=== PATIENT | female | born 1985 | race Caucasian/White ===

== ENCOUNTER 2019-03-05 15:02 | Inpatient (IN) | payer OTHER ==
[~2019-03-05] VITALS: Ht 172.7 cm; Wt 72.2 kg
[2019-03-05] MEDS ORDERED: ACETAMINOPHEN 500 MG TAB PO STA (19:01)
--- NOTE | 2019-03-05 19:21 | ERD ---
ER Documentation Chief Complaint Chief Complaint pelvic pain, fever X 3 hrs HPI This is a 33-year-old female with a history of fibroids who presents ED with right lower abdominal pain that is been present since 1 AM this morning. Fletcher pderaza describes the pain is pressure-like and sharp and states that it is constant. Worsened by movement. Last menstrual period 03-05-19. Patient is currently on menses. Admits to nauseA and fevers. Denies vomiting, hematemesis, hemoptysis, diarrhea, cuts patient, melena, hematochezia, chest pain, shortness breath, dysuria, hematuria, vaginal pain, vaginal discharge and all other symptoms. Patient is sexually active and uses condoms for control. Denies history of STD or pelvic inflammatory disease. ROS All systems reviewed and are negative except as per history of present illness. Allergies Allergies: Coded Allergies: No Known Allergy (Unverified , 03/05/19) PMhx/Soc Medical and Surgical Hx: pt denies Medical Hx, pt denies Surgical Hx Hx Alcohol Use: No Hx Substance Use: No Hx Tobacco Use: No Smoking Status: Never smoker FmHx Family History: No diabetes Physical Exam Vitals Vital Signs Date Temp Pulse Resp B/P (MAP) Pulse Ox O2 O2 Flow FiO2 Time Delivery Rate 03/05/19 98.7 84 18 141/73 100 15:07 (95) Physical Exam Physical Exam Vitals signs: Reviewed by me. General: Well developed, well nourished, in no acute distress. Patient is awake and alert. Head: Normocephalic, atraumatic. Eyes: Normal conjunctiva, Pupils PERRLA, EOM intact grossly ENT: Pharynx is clear, Moist mucous membranes, external ears, nose and mouth normal Neck: Supple, no masses, lymphadenopathy or JVD Respiratory: Clear to auscultation bilaterally with no wheezing, rhonchi, rales, no distress Cardiovascular: RRR, no murmurs, rubs, or gallops Abdominal: Soft, nondistended, no peritoneal signs, no rigidity, no surgical abdomen, bowel sounds present all 4 quadrants, mild tenderness palpation in right lower quadrant right lower pelvis, nontender palpation all other areas, no rebound tenderness Back: No midline tenderness. No flank tenderness Neurologic: Alert and oriented, moving all extremities, normal speech, no focal weakness, no cerebellar signs. Normal mentation Skin: warm and dry, No rash Psych: Normal mood Result Diagram: 03/05/19192703/05/191927 Results 24 hrs Laboratory Tests Test 03/05/19 19:28 03/05/19 19:40 White Blood Count 20.0 10^3/ul Red Blood Count 4.56 10^6/ul Hemoglobin 12.4 g/dl Hematocrit 36.0 % Mean Corpuscular Volume 78.9 fl Mean Corpuscular Hemoglobin 27.2 pg Mean Corpuscular Hemoglobin Concent 34.4 g/dl Red Cell Distribution Width 13.8 % Platelet Count 273 10^3/UL Mean Platelet Volume 11.7 fl Immature Granulocytes % 0.500 % Neutrophils % 79.6 % Lymphocytes % 13.7 % Monocytes % 5.5 % Eosinophils % 0.4 % Basophils % 0.3 % Nucleated Red Blood Cells % 0.0 /100WBC Immature Granulocytes # 0.090 10^3/ul Neutrophils # 16.0 10^3/ul Lymphocytes # 2.7 10^3/ul Monocytes # 1.1 10^3/ul Eosinophils # 0.1 10^3/ul Basophils # 0.1 10^3/ul Nucleated Red Blood Cells # 0.0 10^3/ul Urine Color STRAW Urine Clarity CLEAR Urine pH 5.0 Urine Specific [place] 1.011 Urine Ketones NEGATIVE mg/dL Urine Nitrite NEGATIVE mg/dL Urine Bilirubin NEGATIVE mg/dL Urine Urobilinogen NEGATIVE mg/dL Urine Leukocyte Esterase NEGATIVE Miguel A/ul Urine Microscopic RBC 0 /HPF Urine Microscopic WBC 6 /HPF Urine Hemoglobin 3+ mg/dL Urine Glucose NEGATIVE mg/dL Urine Total Protein NEGATIVE mg/dl Sodium Level 139 mmol/L Potassium Level 4.2 mmol/L Chloride Level 102 mmol/L Carbon Dioxide Level 26 mmol/L Anion Gap 11 Blood Urea Nitrogen 14 mg/dl Creatinine 0.74 mg/dl Est Glomerular Filtrat Rate mL/min > 60 mL/min Glucose Level 99 mg/dl Calcium Level 9.8 mg/dl Total Bilirubin 0.2 mg/dl Direct Bilirubin 0.00 mg/dl Indirect Bilirubin 0.2 mg/dl Aspartate Amino Transf (AST/SGOT) 17 IU/L Alanine Aminotransferase (ALT/SGPT) 11 IU/L Alkaline Phosphatase 59 IU/L Total Protein 8.1 g/dl Albumin 4.5 g/dl Globulin 3.60 g/dl Albumin/Globulin Ratio 1.25 Lipase 124 U/L POC Beta HCG, Qualitative NEGATIVE Current Medications Medications Dose Sig/Ariadne Start Time Status Last (Trade) Ordered Route PRN Stop Time Admin Dose Reason Admin 1,000 mg ONCE STAT 03/05/19 DC 03/05/19 Acetaminophen PO 19:01 03/05/19 19:20 (Tylenol 19:04 Tab) IV Flush 10 ml STK-MED 03/05/19 DC (NS 10 ml) ONCE .ROUTE 21:39 03/05/19 21:40 Sodium 100 ml @ ud STK-MED 03/05/19 DC Chloride ONCE .ROUTE 21:39 03/05/19 21:40 Iohexol 150 ml STK-MED 03/05/19 DC (Omnipaque ONCE .ROUTE 21:39 03/05/19 300mg/ ml) 21:40 Piperacillin 100 ml @ ONCE ONCE 03/05/19 Sod/ 200 mls/hr IVPB 23:30 03/05/19 Tazobactam 23:59 Sod Sodium 1,000 ml @ Q1H STAT 03/05/19 Chloride 1,000 mls/hr IV 23:07 03/06/19 00:06 Procedures/MDM EKG, MONITORS, & DIAGNOSTIC IMAGING: [place] [address] Radiology Main Line: [phone] DIAGNOSTIC IMAGING REPORT Patient: JOSE BALLARD : 1985 Age: 33 Sex: F MR #: [id number] DOS: 03/05/19 1901 Ordering MD: KIMBERLEE GOLD PA-C Location: [facility] Room/Bed: PROCEDURE: CT abdomen and pelvis without contrast. CLINICAL INDICATION: Abdominal Pain TECHNIQUE: CT scan of the abdomen and pelvis without contrast was performed and is reconstructed at 2.5 mm contiguous axial intervals from the dome of the diaphragm to the inferior pubic rami.. The patient was scanned without intravenous contrast. Sagittal and coronal reformatted images were obtained from the axial source images. The calculated radiation dose measures 355 mGy centimeters. The CTDI measures 6.1 mGy. Individualized dose optimization technique was used for the performance of this exam. This included 1. Automated exposure control. 2. Adjustment of the mA and / or kV according to the patient's size. 3. Use of iterative reconstructed technique. COMPARISON: None. FINDINGS: The lung bases are clear of any infiltrate or nodule. No effusion is seen. The liver is of normal size, contour and attenuation with no mass or ductal dilatation. No gallstones are visualized. No splenic, adrenal or pancreatic abnormalities present. Kidneys are of normal size and contour. No hydronephrosis, calculus or masses seen. Ureters are of normal course and caliber with no stone. No bladder mass or stone is present. There are matted loops of bowel in the pelvis with infiltration of the mesenteric fat. Noted is a complex septated fluid collection in the right cul-de-sac measuring approximately 7 by 6 cm. This corresponds to the abnormality found on the recent ultrasound and likely represents a tubal ovarian abscess. Uterus is enlarged with lobulated contour compatible with fibroids. There is no aneurysm. No adenopathy is present. No bowel mass or obstruction is present. The appendix is not confidently seen.. There is a small volume of pelvic ascites. No pneumoperitoneum is visualized. The osseous structures are intact. IMPRESSION: Complex predominately cystic septated mass right pelvis highly suspicious for tumor ovarian abscess on limited CT without oral or intravenous contrast. Clinical correlation suggested. Consider repeat targeted pelvic CT with oral and intravenous contrast for more definitive diagnosis if clinically indicated. .Carson Navarro MD, Date Time Electronically viewed and signed by .Carson Navarro MD, on 03/05/2019 20:34 .A/ CC: KIMBERLEE GOLD PA-C [id number] [place] [address] Radiology Main Line: [phone] DIAGNOSTIC IMAGING REPORT Patient: JOSE BALLARD : 1985 Age: 33 Sex: F MR #: [id number] DOS: 03/05/19 1901 Ordering MD: KIMBERLEE GOLD PA-C Location: [facility] Room/Bed: PROCEDURE: US Pelvis. CLINICAL INDICATION: pelvic pain TECHNIQUE: Multiple sonographic images of the pelvis were obtained utilizing transabdominal technique. The images were reviewed on a PACS workstation. COMPARISON: None. FINDINGS: The uterus is normal in size with a heterogeneous appearance of the myometrium. The uterus measures 10.6 x 4.2 x 6.1 cm. There are multiple heterogeneous masses in the uterus, the largest is exophytic and measures 6.0 x 4.9 x 4.6 cm. The endometrial stripe is homogeneous in appearance and has the thickness of 7 mm. There is a complex heterogeneous tubular structure in the right posterior aspect of the uterus, measuring 9.2 x 4.9 x 4.6 cm. There is internal debris within this structure, suspicious for a possible tubo-ovarian abscess. The right ovary is normal in size and measures 4.3 x 2.4 x 2.9 cm. There is normal Doppler flow in the right ovary. The left ovary was not visualized.. There is a small amount of free fluid in the pelvis. RPTAT: AA IMPRESSION: Large tubular structure in the right posterior aspect of the uterus, measuring up to 9.2 cm. There is internal debris, suspicious for a tubo-ovarian abscess. Follow-up CT with contrast is recommended. Heterogeneous uterus with multiple fibroids. .Rajan Last MD, MD Date Time Electronically viewed and signed by .Rajan Last MD, MD on 03/05/2019 20:19 .S/ CC: KIMBERLEE GOLD PA-C [id number] LAB INTERPRETATION: CBC leukocytosis with a WBC of 20.0, mildly decreased hematocrit 36.0, elevated neutrophil percentage 79.6% Chemistry shows no evidence of significant electrolyte abnormalities or renal insufficiency Liver function test shows no evidence of acute biliary or hepatic dysfunction Lipase shows no evidence of acute pancreatitis Urine negative Urinalysis shows 6 microscopic WBCs, no leukocyte esterase and no RBCs ER COURSE: The patient was given tylenol AND ZOSYN The medication was well tolerated and the patient reports improvement in symptoms. The patient was stable throughout ED course. I kept the patient and/or family informed of laboratory and diagnostic imaging results throughout the emergency room course. The patient was promptly evaluated and a treatment plan was devised based on H&P and other data. This plan was discussed with the patient who agreed and had no further questions or concerns prior to discharge. MEDICAL DECISION MAKING: This is a 33-year-old female with a history of fibroids who presents ED with right lower abdominal pain that is been present since 1 AM this morning. Patient describes the pain is pressure-like and sharp and states that it is co nstant. Worsened by movement. Physical examination is remarkable for some tenderness in the lower abdomen. Proceeded with ordering blood work and CT as well as ultrasound. Lab work is remarkable for a leukocytosis of 20. Imaging shows a possible tubo-ovarian abscess. I discussed patient with on-call labor is Dr. Rojas who advises that patient should be admitted to hospital for further workup. Patient was accepted by Dr. Rojas [id number]. Patient was started on Zosyn in the emergency department. Disclaimer: Inadvertent spelling and grammatical errors are likely due to EHR/dictation software use and do not reflect on the overall quality of patient care. Also, please note that the electronic time recorded on this note does not necessarily reflect the actual time of the patient encounter. Departure Diagnosis: Primary Impression: Pelvic mass Additional Impression: Leukocytosis Leukocytosis type: unspecified Qualified Codes: D72.829 - Elevated white blood cell count, unspecified Condition: Stable KIMBERLEE GOLD PA-C Mar 05, 2019 19:21
[2019-03-05] MEDS ORDERED: IOHEXOL 300MG/ML 150 ML BTL ONE (21:39)
[2019-03-05] MEDS ORDERED: SOD CHLORIDE 0.9% 100 ML ONE (21:39)
[2019-03-05] MEDS ORDERED: SOD CHLORIDE 0.9% 1,000 ML IV STA (23:07)
[2019-03-05] MEDS ORDERED: PIPER-TAZO 3.375 GM IV (PMX) 100 ML IVPB ONE (23:30)
[2019-03-06 04:50] VITALS: BP 118/70; PULSE 85; RESP 18
[2019-03-06 04:51] VITALS: Ht 172.7 cm; Wt 72.2 kg
[2019-03-06] MEDS: IBUPROFEN 600 MG TAB PO PRN ×3 (06:59→21:33)
[2019-03-06 07:18] VITALS: BP 120/73; PULSE 94; RESP 18
--- NOTE | 2019-03-06 11:28 | HP ---
Date/Time of Note Date/Time of Note DATE: 03/06/19 TIME: 10:23 Assessment/Plan VTE Prophylaxis SCD applied (from Nsg): Yes Pharmacological prophylaxis: NA/contraindicated Pharm contraindication: low risk/ambulating Lines/Catheters IV Catheter Type (from Nrsg): Saline Lock Central line still needed: No Urinary Cath still in place: No Assessment/Plan Assessment/Plan A pelvic pain uterine fibroids TOA leukocytosis P observe with broad spectrum antibiotics initially, f/u depend upon clinical course Result Diagram: 03/05/198 03/06/19 0551 Results 24hrs Laboratory Tests Test 03/05/19 19:28 03/05/19 19:40 03/06/19 05:51 White Blood Count 20.0 H Red Blood Count 4.56 Hemoglobin 12.4 Hematocrit 36.0 L Mean Corpuscular Volume 78.9 L Mean Corpuscular Hemoglobin 27.2 L Mean Corpuscular Hemoglobin Concent 34.4 Red Cell Distribution Width 13.8 Platelet Count 273 Mean Platelet Volume 11.7 H Immature Granulocytes % 0.500 H Neutrophils % 79.6 H Lymphocytes % 13.7 L Monocytes % 5.5 Eosinophils % 0.4 Basophils % 0.3 Nucleated Red Blood Cells % 0.0 Immature Granulocytes # 0.090 H Neutrophils # 16.0 H Lymphocytes # 2.7 Monocytes # 1.1 H Eosinophils # 0.1 Basophils # 0.1 Nucleated Red Blood Cells # 0.0 Urine Color STRAW Urine Clarity CLEAR Urine pH 5.0 Urine Specific [place] 1.011 Urine Ketones NEGATIVE Urine Nitrite NEGATIVE Urine Bilirubin NEGATIVE Urine Urobilinogen NEGATIVE Urine Leukocyte Esterase NEGATIVE Urine Microscopic RBC 0 Urine Microscopic WBC 6 H Urine Hemoglobin 3+ H Urine Glucose NEGATIVE Urine Total Protein NEGATIVE Sodium Level 139 140 Potassium Level 4.2 3.8 Chloride Level 102 110 Carbon Dioxide Level 26 22 Anion Gap 11 8 Blood Urea Nitrogen 14 10 Creatinine 0.74 0.70 Est Glomerular Filtrat Rate mL/min > 60 > 60 Glucose Level 99 120 Calcium Level 9.8 9.1 Total Bilirubin 0.2 1.0 Direct Bilirubin 0.00 0.00 Indirect Bilirubin 0.2 1.0 Aspartate Amino Transf (AST/SGOT) 17 13 L Alanine Aminotransferase (ALT/SGPT) 11 L 8 L Alkaline Phosphatase 59 47 Total Protein 8.1 6.9 # Albumin 4.5 3.7 Globulin 3.60 H 3.20 Albumin/Globulin Ratio 1.25 1.15 Lipase 124 POC Beta HCG, Qualitative NEGATIVE C-Reactive Protein 4.7 H HPI/ROS Admit Date/Time Admit Date/Time Mar 06, 2019 at 04:11 Hx of Present Illness This is 33y.o nulligravida who is currently on period,presents ED with severe lower abdominal pain mostly on right side with nausea since 03/05/1903/20/100 She stated that pain was so severe bend over and unable to get up fo approximately 45min on the floor,took the Ibuprofen 400mg and 600mg on two occasions . Pain got aggrevated with movement and alleviated with rest.,also she stated that she had fever but didnt take temperature. She is also known to have uterine fibroids which was discovered recently in . She is sexually active for the last 3yrs with x1 partner using condom always,HPV vaccination at 19y.o menarche at 14y.o regular period monthly ,last 7days which is heav with passing clots,. For the last 2yrs she has been having pelvic pain with only period time but for the last 2mo ,pain is constant , even without menses. patient denies no other subject symptoms except on and off constipation, lately noticed that her pelvic pain radiates to the back. U/s and CT pelvis with contrast ,revealed multple uterine fbroids ,largest exophytic6.0cmand tubulat complex septated cystic marty wih internal cho in it behind rtadnea behind the uterus suggesting tubo ovrian abscess. Patient had no hx of pelvic infection or STD Base on WBC which was 20.000,with u/s ,admitted for antibiotic treatment and observe the clinical course . ROS nausea RLQ pain back pain Constitutional: no complaints, improved Eyes: no complaints ENT: no complaints Respiratory: no complaints Cardiovascular: no complaints Gastrointestinal: pain, nausea Genitourinary: no complaints Musculoskeletal: no complaints, back pain Skin: no complaints Neurologic: no complaints Endocrine: no complaints Lymphatic: no complaints Psychological: no complaints PMH/Family/Social Past Medical History Medical History: no pertinent history Medications Current Medications Ibuprofen (Motrin) 600 mg Q6H PRN PO PAIN LEVEL 6-10 Last administered on 03/06/19at 06:59; Admin Dose 600 MG; Start 03/06/19 at 07:00 Coded Allergies: No Known Allergy (Unverified , 03/05/19) Past Surgical History Past Surgical Hx: no surgical history Family History Significant Family History: heart disease, cancer, diabetes, hypertension, lung disease (gm(P) HTN DM Stomach cancer m HTN F brain tumor A(m) htn DM , multiple heart attack ,GF(P) lung cancer etc), other (lung cancer , brain cancer, ) Social History Alcohol Use: none Smoking Status: Never smoker Drug Use: none Exam/Review of Systems Vital Signs Vitals Vital Signs Date Temp Pulse Resp B/P (MAP) Pulse Ox O2 O2 Flow FiO2 Time Delivery Rate 03/06/19 98.6 94 18 120/73 99 Room Air 07:18 (89) Intake and Output 03/05/19 03/05/19 03/06/19 1515:00 23:00 07:00 IntakeIntake Total 150 ml BalanceBalance 150 ml Exam Constitutional: alert, oriented, well developed Psych: no complaints Head: normocephalic, atraumatic Eyes: nl conjunctiva, EOMI, nl lids, nl sclera, PERRL ENMT: nl external ears & nose, nl lips & teeth, nl nasal mucosa & septum Neck: supple, non-tender Respiratory: clear to auscultation, normal air movement Cardiovascular: regular rate and rhythm, nl pulses Gastrointestinal: rebound or guarding (no rebound tenderness but guarding noted), tender ( on RLQ) Genitourinary - Female: uterus (enlarged with multiple fibroids/US) Musculoskeletal: nl extremities to inspection Extremities: normal pulses SHON SINGH MD Mar 06, 2019 11:05
[2019-03-06] MEDS: PIPER-TAZO 3.375 GM IV (PMX) 100 ML IVPB SCH ×2 (15:30→17:00)
[2019-03-06 15:42] VITALS: BP 101/62; PULSE 102; RESP 18
[2019-03-06 19:57] VITALS: BP 95/54; PULSE 95; RESP 20
[2019-03-06] MEDS: FAMOTIDINE 20 MG TAB PO SCH (20:54)
[2019-03-07] MEDS: PIPER-TAZO 3.375 GM IV (PMX) 100 ML IVPB SCH ×4 (00:24→18:35)
[2019-03-07 02:39] VITALS: BP 138/66; PULSE 74; RESP 18
[2019-03-07 07:22] VITALS: BP 94/50; PULSE 82; RESP 18
[2019-03-07] MEDS: FAMOTIDINE 20 MG TAB PO SCH ×2 (08:59→21:01)
[2019-03-07 14:00] VITALS: BP 114/56; PULSE 78; RESP 18
--- NOTE | 2019-03-07 15:10 | QN ---
Documentation Comment SKYLAR ASHFORD MD Mar 07, 2019 15:10
--- NOTE | 2019-03-07 16:34 | QN ---
Documentation Comment HD #2 for possible TOA Pt reports feeling much better and is pain free. She is on Zosyn and tolerating that well. She is up and ambulating. T=98.2 BP 114/56 Abdomen soft, nontender and no masses palpable. WBC decreased from 20k to 12.7.. Hgb was 12.4 and now 10.6 (due to dilution). A: Possible TOA with great symptomatic improvement. If a TOA it is of borderline size to consider medical therapy with antibiotics only. It is 7 x 6 cm on MRI but 9.2 cm on US. P: To repeat imaging studies tomorrow to follow to see if there is improvement. If not, to consider either percutaneous drainage or surgery to remove, both of which offer information on the actual identification not the presumed ID of the structure. Cont. Zosyn for now. SKYLAR ASHFORD MD Mar 07, 2019 16:34
[2019-03-07 19:56] VITALS: BP 102/60; PULSE 74; RESP 20
[2019-03-08] VITALS (21 sets, daily range): BP systolic 99–117; BP diastolic 55–72; PULSE 54–89; RESP 10–18
[2019-03-08] MEDS: PIPER-TAZO 3.375 GM IV (PMX) 100 ML IVPB SCH ×6 (00:02→23:45)
[2019-03-08] MEDS: FAMOTIDINE 20 MG TAB PO SCH ×2 (08:01→20:08)
--- NOTE | 2019-03-08 09:58 | PREAC ---
Date/Time of Note Date/Time of Note DATE: 03/08/19 TIME: 09:55 Anesthesia Eval and Record Evaluation Time Pre-Procedure Interview DATE: 03/08/19 TIME: 09:55 Age 33 Sex female NPO: 8 hrs Preoperative diagnosis ovarian cyst Planned procedure operative laparoscopy, possible right ovarian cystectomy, possible salpingo- oophorectomy, possible laparotomy Past Medical History Past Medical History: Includes (fibroids ) Heme: Anemia Surgery & Anesthesia Issues No known issue Meds Anticoagulation: No Beta Mark within 24 hr: No Reason Beta Mark not given: Pt. not on B-Mark Current Medications Ibuprofen (Motrin) 600 mg Q6H PRN PO PAIN LEVEL 6-10 Last administered on 03/06/19at 21:33; Admin Dose 600 MG; Start 03/06/19 at 07:00 Piperacillin Sod/ Tazobactam Sod 100 ml @ 200 mls/hr Q6 IVPB Last administered on 03/08/19at 05:48; Admin Dose 200 MLS/HR; Start 03/06/19 at 14:00 Famotidine (Pepcid) 20 mg BID PO Last administered on 03/07/19at 21:01; Admin Dose 20 MG; Start 03/06/19 at 21:00 Meds reviewed: Yes Allergies Coded Allergies: No Known Allergy (Unverified , 03/05/19) Allergies Reviewed: Yes Labs/Studies Labs Reviewed: Reviewed by anesthesiologist Result Diagram: 03/08/19 0432 03/06/19 0551 Laboratory Tests 03/08/19 04:32 test: Negative Pre-procedure Exam Last vitals Vital Signs Date Temp Pulse Resp B/P (MAP) Pulse Ox O2 O2 Flow FiO2 Time Delivery Rate 03/08/19 98.2 74 17 112/64 97 07:18 (80) 03/07/19 Room Air 14:00 Airway: Adequate mouth opening, Adequate thyromental dist Mallampati: Mallampati II Teeth: Normal Lung: Normal Heart: Normal ASA Physical Status ASA physical status: 2 Emergency: None Planned Anesthetic General/MAC: ETT Planned Pain Management Parenteral pain med Pre-operative Attestations Prior to commencing anesthesia and surgery, the patient was re-evaluated, there was verification of: *The patient's identity *The results of appropriate recent lab work and preoperative vital signs *The above evaluation not changing prior to induction *Anesthetic plan, risk benefits, alternative and complications discussed with patient/family; questions answered; patient/family understands, accepts and wishes to proceed. KOREY HURT MD Mar 08, 2019 09:58
[2019-03-08] MEDS ORDERED: FENTAnyl 50 MCG/ML VIAL IV PRN ×3 (10:30)
[2019-03-08] MEDS ORDERED: KETOROLAC 30 MG INJ IV PRN (10:30)
[2019-03-08] MEDS ORDERED: ONDANSETRON 4 MG INJ IV PRN ×2 (10:30→19:00)
[2019-03-08] MEDS ORDERED: DIPHENHYDRAMINE 50 MG INJ IV PRN (10:30)
[2019-03-08] MEDS ORDERED: HYDROmorphONE 1 MG/5 ML IV SYRINGE IV PRN ×3 (10:30)
[2019-03-08] MEDS ORDERED: PROCHLORPERAZINE 10 MG INJ IV PRN (10:30)
[2019-03-08] MEDS ORDERED: MEPERIDINE 25 MG INJ IV PRN (10:30)
[2019-03-08] MEDS ORDERED: MIDAZOLAM 1 MG/ML 2 ML INJ ONE (10:37)
[2019-03-08] MEDS ORDERED: ROCURONIUM 50 MG INJ ONE (10:37)
[2019-03-08] MEDS ORDERED: PROPOFOL 20 ML ONE (10:37)
[2019-03-08] MEDS ORDERED: LIDOCAINE 2% (SDV) 5 ML INJ ONE (10:37)
[2019-03-08] MEDS ORDERED: SUCCINYLCHOLINE CHLORIDE 100 MG/5 ML SYG IV ONE (10:37)
[2019-03-08] MEDS ORDERED: ROPIVACAINE 0.5 % 30 ML VIAL ONE (10:37)
[2019-03-08] MEDS ORDERED: FENTAnyl 50 MCG/ML VIAL ONE (10:45)
[2019-03-08] MEDS ORDERED: CEFAZOLIN 1 GM INJ ONE (10:59)
[2019-03-08] MEDS ORDERED: ONDANSETRON 4 MG INJ ONE (11:01)
[2019-03-08] MEDS ORDERED: DEXAMETHASONE 4 MG/ML 5 ML INJ ONE (11:01)
[2019-03-08] MEDS ORDERED: FAMOTIDINE 20 MG INJ ONE (11:02)
[2019-03-08] MEDS ORDERED: HYDROmorphONE 2 MG/ML SYG ONE (11:46)
[2019-03-08] MEDS ORDERED: NEOSTIGMINE 3 MG/3 ML SYRINGE ONE ×2 (11:55→11:59)
[2019-03-08] MEDS ORDERED: GLYCOPYRROLATE 0.4 MG INJ ONE ×2 (11:55→11:59)
--- NOTE | 2019-03-08 12:22 | OPPN ---
Date/Time of Note Date/Time of Note DATE: 03/08/19 TIME: 12:19 Operative Report Preoperative Diagnosis Right ovarian torsion and cyst Postoperative Diagnosis Left Ruptured ovarian cyst and endometrioma ,Extensive endometriosis and large fibroid uterus Operation/Procedure Performed Operative laparoscopy left ovarian cystectomy ,copious irrigation of abdominal and pelvic cavity Surgeon see signature line assistant professor of music none Anesthesia: general Estimated blood loss: 0 - 10 ml's Transfusion Required none Specimen left ovarian cyst Grafts/Implants none Complications none NEAL WILDER M.D. Mar 08, 2019 12:22
--- NOTE | 2019-03-08 12:23 | PAC ---
Date/Time of Note Date/Time of Note DATE: 03/08/19 TIME: 12:22 Post-Anesthesia Notes Post-Anesthesia Note Last documented vital signs Vital Signs Date Temp Pulse Resp B/P (MAP) Pulse Ox O2 O2 Flow FiO2 Time Delivery Rate 03/08/19 98.6 12:14 03/08/19 74 17 112/64 97 07:18 (80) 03/07/19 Room Air 14:00 Activity: WNL Respiratory function: WNL Cardiovascular function: WNL Mental status: Baseline Pain reasonably controlled: Yes Hydration appropriate: Yes Nausea/Vomiting absent: Yes Comments BP: 107/62 HR: 60 RR: 15 T: 98.6 SaO2: 97% KOREY QUINONEZ MD Mar 08, 2019 12:23
[2019-03-08] MEDS ORDERED: OXYCODONE/ACETAMINOPHEN (5/325) TAB PO PRN (12:30)
--- NOTE | 2019-03-08 14:00 | OPR ---
DATE OF OPERATION: 03/08/2019 PREOPERATIVE DIAGNOSIS: Large right ovarian cyst and a possible ovarian torsion. POSTOPERATIVE DIAGNOSIS: Left large ovarian cyst endometrioma ruptured ovarian cyst and some fluid i n the pelvic cavity. OPERATION PERFORMED: Operative laparoscopy, left ovarian cystectomy copious irrigation of abdominal and pelvic cavity. ESTIMATED BLOOD LOSS: Less than 10 mL. COMPLICATIONS: None. ANESTHESIOLOGIST: Dr. Herrera. ANESTHESIA: General. COMPLICATIONS: None. ESTIMATED BLOOD LOSS: Less than 10 mL. TECHNIQUE: The patient was taken to the operating room where general anesthesia was found to be adeq uate. The patient was placed in dorsal supine position. After prep and drape, a weighted speculum w as placed inside the vaginal vault. Anterior lip of the cervix was grasped by single-tooth tenaculum . Cervix was dilated by Hodgson dilators. HUMI was inserted. Then, attention was turned to abdominal field. A 1 cm incision was made 2 cm above the umbilicus. First trocar was inserted under direct v isualization of the camera. Intra-abdominal cavity was filled up using 4 liters of CO2. Second and third trocar was inserted both sides 10 cm from the first trocar under direct visualization of the ca sushila. Pelvic fluid was noted. This was collected for cytology. The large bilobed left ovarian cyst was noticed that it was leaking chocolate material. A left ovarian cystectomy was done, both lobes were removed. Hemostasis achieved. Copious irrigation of abdominal and pelvic cavity was done. Pic tures taken. Gas was removed. Trocar was removed under direct visualization of the camera. A skin incision was closed using 3-0 Monocryl sutures. Dermabond was placed on top of the incision. HUMI w as removed. The patient tolerated the procedure well and was transferred to recovery room in stable condition. There was no complication regarding this procedure. Dictated By: NEAL SORIA/SALVATORE Conf#: [id number] DID#: [id number]
--- NOTE | 2019-03-08 14:08 | HP ---
DATE OF ADMISSION: 03/06/2019 HISTORY OF PRESENT ILLNESS: This 34-year-old 0, para 0 admitted to the emergency room with s evere abdominal pain, some fluid in the pelvis and also was treated with antibiotics for possible arcadio gnosis of TOA. PAST MEDICAL HISTORY: Denies. PAST SURGICAL HISTORY: Denies. ALLERGIES: NKDA. PHYSICAL EXAMINATION: VITAL SIGNS: Stable. GENERAL: Normal. ABDOMEN: Tender in the right lower quadrant and in the mid lower part of the abdomen. Ultrasound sh owed a large right ovarian cyst with some fluid in the pelvic cavity. ASSESSMENT AND PLAN: A 33-year-old 0, para 0 with large abdominal cyst and abdominal pain wa s consented for operative laparoscopy, possible salpingo-oophorectomy, possible ovarian cystectomy. Possible diagnosis of ovarian torsion versus ruptured ovarian cyst. Risks and benefits discussed. T he patient signed the consent and alternatives discussed with the patient. Risks and benefits of alt ernatives discussed. The patient was taken to the operating room. Dictated By: NEAL WILDER MD RG/NTS Conf#: [id number] DID#: [id number] CC: FLACO SINGH MD;*EndCC*
[2019-03-08] MEDS ORDERED: IBUPROFEN 600 MG TAB NGT PRN (16:30)
[2019-03-08] MEDS: IBUPROFEN 600 MG TAB PO PRN (23:39)
[2019-03-09 02:05] VITALS: BP 110/65; PULSE 77; RESP 18
[2019-03-09] MEDS: PIPER-TAZO 3.375 GM IV (PMX) 100 ML IVPB SCH ×2 (06:10→11:22)
[2019-03-09 07:18] VITALS: BP 119/62; PULSE 82; RESP 19
[2019-03-09] MEDS: FAMOTIDINE 20 MG TAB PO SCH (08:34)
[2019-03-09] MEDS: IBUPROFEN 600 MG TAB PO PRN (09:27)
--- NOTE | 2019-03-09 11:26 | DS ---
Date/Time of Note Date/Time of Note DATE: 03/09/19 TIME: 11:25 Discharge Summary Admission/Discharge Info Admit Date/Time Mar 06, 2019 at 04:11 Discharge Date/Time 03/09/2019 Discharge Diagnosis Ruptured let ovarian cyst and Endometrioma Patient Condition: Good Procedures Operative laparoscopy left ovarian cystectomy Hospital Course uneventful Home Meds No Active Prescriptions or Reported Meds Primary Care Provider Not On Staff Doctor NEAL WILDER M.D. Mar 09, 2019 11:26
--- NOTE | 2019-03-09 11:28 | QN ---
Documentation Comment patient is comfortable resting in bed ,Minimum pain VS stable Gen NAD Abd soft NT ND incisions are intact Genitalia no blood at perineum --->Discharged home with precautions --->Questions answered NEAL WILDER M.D. Mar 09, 2019 11:28
== END 2019-03-09 13:16 | disposition home or self-care (01) | DRG 743 ==
LOC: E/R 15:02 → MS1 03-06 04:11
PROVIDERS: ADMIT Obstetrics & Gynecology; ATTEND Obstetrics & Gynecology
PROC: 0UB14ZZ Excision of Left Ovary, Percutaneous Endoscopic Approach (ICD-10-PCS; principal; 2019-03-08 10:30)
DX: N83.202 Unspecified ovarian cyst, left side (principal); N80.1 Endometriosis of ovary; D25.9 Leiomyoma of uterus, unspecified
CPT/HCPCS: 36415; 74176; 74177; 76830; 76856; 80053; 81001; 81025; 83690; 85025; 86140; 86304; 87086; 88104; 88305; 96374; J0690; J1100; J1170; J2250; J2405; J2543; J2710; J2795; J3010; J7030; Q9967